=== PATIENT | female | born 2000 | race African-American/Black ===

== ENCOUNTER 2019-01-05 02:34 | Emergency (ER) | payer OTHER ==
[2019-01-05] MEDS ORDERED: ALBUTEROL SO4 2.5/IPRATROPIUM 0.5 INH SOL 3 ML VIAL.NEB. NEB ONE (02:44)
[2019-01-05] MEDS ORDERED: predniSONE 20 MG TABLET (UD) PO ONE (03:15)
[2019-01-05] MEDS: ALBUTEROL SO4 2.5/IPRATROPIUM 0.5 INH SOL 3 ML VIAL.NEB. NEB SCH ×2 (03:17→03:20)
[2019-01-05 03:20] VITALS: BP 127/75; TEMP 98; BMI 33.1
[2019-01-05] MEDS ORDERED: predniSONE 20 MG TABLET (UD) ONE (03:21)
[2019-01-05] MEDS ORDERED: ALBUTEROL SO4 2.5/IPRATROPIUM 0.5 INH SOL 3 ML VIAL.NEB. NEB SCH (03:30)
--- NOTE | 2019-01-05 03:35 | PDOC ---
History of Present Illness - General Chief Complaint: Shortness of Breath Stated Complaint: CHEST PAIN,DIFFICULTY BREATHING Time Seen by Provider: 01/05/19 02:52 - History of Present Illness Initial Comments: 01/05/19 03:35 18y/o F hx of asthma presents to the ED with sob and wheezing. She started coughing 2 days ago and experienced some sob which was bearable. She woke up a few hours ago, struggling to breathe and with audible wheezing. Her cough is non -productive and she has not had any fevers. Equally complaining midline chest pain which worsens with breathing effort.Chest pain is non-radiating. She endorses sick contacts (sister with runny nose and cough) She denies chills, hemoptysis, previous hx of clots, previous intubation/hospitalization for asthma exacerbation Past History - Past Medical History Allergies/Adverse Reactions: Allergies Allergy/AdvReac Type Severity Reaction Status Date / Time No Known Allergies Allergy Verified 01/05/19 02:52 Home Medications: Ambulatory Orders Prednisone [Deltasone] 40 mg PO ONCE 5 Days #10 tablet 01/05/19 Asthma: Yes COPD: No - Surgical History Appendectomy: Yes - Suicide/Smoking/Psychosocial Hx Smoking History: Never smoked Review of Systems - Review of Systems Constitutional: No: Diaphoresis, Fever HEENTM: No: Eye Pain, Blurred Vision Respiratory: Yes: Symptoms reported Cardiac (ROS): Yes: Chest Pain, Chest Tightness ABD/GI: No: Abdominal Distended, Constipated : No: Burning, Dysuria Musculoskeletal: Yes: Back Pain. No: Muscle Weakness Integumentary: No: Bruising, Change in Color Neurological: Yes: Headache Endocrine: No: Excessive Sweating *Physical Exam - Vital Signs Last Vital Signs Temp Pulse Resp BP Pulse Ox 98.0 F 100 H 22 H 127/75 100 01/05/19 02:47 01/05/19 02:47 01/05/19 02:47 01/05/19 02:47 01/05/19 02:47 - Physical Exam General Appearance: Yes: Nourished, Appropriately Dressed. No: Apparent Distress HEENT: positive: Normal ENT Inspection, Normal Voice. negative: Muffled/Hoarse voice, Excessive drooling Neck: positive: Trachea midline, Supple. negative: Tender Respiratory/Chest: positive: Lungs Clear, Normal Breath Sounds, Other (pt had received 1 duoneb treatment at the time of my evaluation. ). negative: Respiratory Distress, Accessory Muscle Use, Decreased Breath Sounds, Crackles, Rales, Wheezing Cardiovascular: positive: Regular Rhythm, Regular Rate, S1, S2. negative: Edema , JVD Gastrointestinal/Abdominal: positive: Normal Bowel Sounds, Soft, Protuberent. negative: Tenderness, Mass Musculoskeletal: positive: Normal Inspection. negative: CVA Tenderness ( reproducible tenderness on palpation of right upper back) Extremity: positive: Normal Capillary Refill, Normal Inspection, Normal Range of Motion Integumentary: positive: Normal Color, Dry, Warm Neurologic: positive: Fully Oriented, Alert, Normal Mood/Affect Medical Decision Making - Medical Decision Making 01/05/19 03:45 18y/o F hx of asthma presents to the ED with sob and wheezing Meds: Duoneb treatment x3 Discharge home with 5 day course of oral prednisone Pt advised to follow up with primary care provider. *DC/Admit/Observation/Transfer Diagnosis at time of Disposition: Asthma exacerbation Qualifiers: Asthma severity: moderate Asthma persistence: unspecified Qualified Code(s): J45.901 - Unspecified asthma with (acute) exacerbation - Referrals - Patient Instructions Printed Discharge Instructions: Asthma -- Adult Additional Instructions: You should return to the ER if: you begin to develop worsening shortness of breath/difficulty breathing despite treatment with your prescribed medications, if you develop fevers for greater than 2 days, worsening cough, or for any other concerns with your breathing or any other problems. For more information on Asthma please visit the [employer]'s Website at: [email or web address] Follow up with your primary care provider within the next week - Post Discharge Activity
[2019-01-05 04:01] VITALS: PULSE 112
--- NOTE | 2019-01-05 04:01 | PDOC ---
Attending Attestation - Resident Resident Name: Odilia Carvajal - ED Attending Attestation I have performed the following: I have examined & evaluated the patient, The case was reviewed & discussed with the resident, I agree w/resident's findings & plan, Exceptions are as noted - HPI HPI: 01/05/19 04:00 18F pmh of asthma here with 2 days of uri symptoms with cough now with worsening sob. +sick contact - Physicial Exam PE: 01/05/19 04:01 Agree with exam as documented by resident - Medical Decision Making 01/05/19 05:13 Asthma exacerbation subjective and objective improvement after treatment Low risk exacerbation DC pt home with rx for inhaler to pharmacy of choice.
== END 2019-01-05 04:01 | disposition home or self-care (01) ==
LOC: JER 02:34
PROC: 3E0F7GC Introduction of Other Therapeutic Substance into Respiratory Tract, Via Natural or Artificial Opening (ICD-10-PCS; principal; 2019-01-05)
DX: J45.901 Unspecified asthma with (acute) exacerbation (principal)
CPT/HCPCS: 94640; 99282-25